=== PATIENT | female | born 1930 | race Two or more races ===

== ENCOUNTER → 2017-02-22 | Outpatient (CLI) | END | disposition home or self-care (01) | DX: M25.551 Pain in right hip (principal); M79.661 Pain in right lower leg; M54.5 Low back pain; M54.10 Radiculopathy, site unspecified; Z96.653 Presence of artificial knee joint, bilateral; I10 Essential (primary) hypertension; R10.30 Lower abdominal pain, unspecified; E53.8 Deficiency of other specified B group vitamins; R20.0 Anesthesia of skin | CPT/HCPCS: 73502; G0463 ==

== ENCOUNTER 2017-04-28 05:09 | Observation (INO) | payer MEDICARE, OTHER ==
[~2017-04-28] VITALS: Ht 154.9 cm; Wt 78.0 kg
[2017-04-28] VITALS (16 sets, daily range): BP systolic 132–170; BP diastolic 57–82; PULSE 80–96; RESP 18–37; TEMP 98.1; Ht 154.9 cm; Wt 78.0 kg
[2017-04-28] MEDS ORDERED: HYDROmorphONE 1 MG/ML SYG IV STA (05:38)
[2017-04-28] MEDS ORDERED: ONDANSETRON 4 MG INJ IV STA (05:38)
--- NOTE | 2017-04-28 06:19 | RADRPT ---
PROCEDURE: XR Hip. CLINICAL INDICATION: Trauma TECHNIQUE: Single AP portable views of the right hip COMPARISON: 02/22/2017 FINDINGS: There has been interval right total hip arthroplasty with displacement of the femoral prosthesis sup eriorly. No fracture or osseous lesion is identified. IMPRESSION: Dislocated right hip prosthesis. Physician Phyllis Date Time Electronically viewed and signed by Satya Calixto Physician on 04/28/2017 06:18 CS/
[2017-04-28] MEDS ORDERED: KETAMINE 500 MG INJ IV ONE (06:30)
[2017-04-28] MEDS ORDERED: PROPOFOL 200 MG INJ IV ONE (06:30)
--- NOTE | 2017-04-28 06:33 | ERD ---
ER Documentation Chief Complaint Date/Time DATE: 04/28/17 TIME: 06:29 Chief Complaint RT HIP REPLACEMENT 04/11;WHILE IN [facility],KNEE GAVE OUT AND PT FELL. HPI Patient is a 86-year-old female who presents with sudden onset, constant, moderate pain to the right hip after a mechanical fall. The patient is in a rehabilitation center 2 weeks after a right hip replacement and was walking to the bathroom early this morning with assistance. She turned away from the sink and felt her right hip give out. Staff were able to lower her to the ground and there is no head or other trauma. The patient complains of inability to walk and pain to the right hip and right knee. She denies vertigo, lightheadedness, loss of balance.The patient reports that she had a unremarkable preoperative workup 2 weeks ago. Her surgery was performed at [facility].Patient reports that she had her stitches removed yesterday. ROS All systems reviewed and are negative except as per history of present illness. Medications Home Meds Reported Medications Atorvastatin* (Atorvastatin*) 80 Mg Tablet, 80 MG PO QHS, #30 TAB 04/28/17 Aspirin* (Aspirin* Chew) 81 Mg Tab.chew, 324 MG PO DAILY, TAB.CHEW 04/28/17 Oxycodone Hcl* (IR) (Oxycodone Hcl*) 5 Mg Capsule, 5 MG PO Q3 Y for PAIN, CAP 04/28/17 Acetaminophen* (Acetaminophen*) 650 Mg Tablet, 650 MG PO Q4 Y for PAIN AND OR ELEVATED TEMP, #30 TAB 04/28/17 Docusate Sodium* (Colace*) 100 Mg Capsule, 100 MG PO BID, #60 CAP 04/28/17 Calcium Carbonate* (Caltrate-600*) 600 MG Calcium Tab, 600 MG PO BID, TAB (1500 mg Calcium Carbonate) 04/28/17 Mineral Oil* (Fleet* Mineral Oil Enema) 133 Ml Oil, 133 ML MD DAILY Y for CONSTIPATION, ENEMA 04/28/17 Bisacodyl* (Dulcolax*) 5 Mg Tablet.dr, 10 MG MD DAILY Y for CONSTIPATION, TAB 04/28/17 Zolpidem Tartrate* (Ambien*) 5 Mg Tablet, 5 MG PO QHS Y for INSOMNIA, #30 TAB 04/28/17 Diphenhydramine Hcl* (Benadryl*) 25 Mg Cap, 25 MG PO Q4 Y for ITCHING, CAP 04/28/17 Magnesium Hydroxide* (Milk Of Magnesia*) 400 Mg/5 Ml Oral.susp, 30 ML PO DAILY Y for CONSTIPATION, ML 04/28/17 Sotalol Hcl* (Sotalol Hcl*) 80 Mg Tablet, 80 MG PO BID, TAB HOLD IF SBP<110 04/28/17 Ibandronate Sodium* (Boniva*) 150 Mg Tablet, 150 MG PO Q28D, TAB 04/28/17 Esomeprazole Mag Trihydrate (Nexium) 40 Mg Capsule.dr, 40 MG PO AC BREAKFAST, # 30 CAP 04/28/17 Cyclosporine (RESTASIS) 1 Each Droperette, 1 DROP BOTH EYES Q12, #1 BOX 04/28/17 Benazepril Hcl* (Benazepril Hcl*) 40 Mg Tablet, 40 MG PO DAILY, #30 TAB 04/28/17 Discontinued Reported Medications Adhesive Tape (ADHESIVE TAPE) 1 Each Tape 04/28/17 [chlorohexadene] No Conflict Check 04/28/17 Allergies Allergies: Coded Allergies: adhesive tape (Verified Allergy, Severe, 04/28/17) chlorhexidine (Verified Allergy, Severe, 04/28/17) PMhx/Soc Past medical history: Hypertension Past surgical history: Right hip replacement, bilateral knee replacement, back surgery Social history: No current or former tobacco use, no alcohol History of Surgery: Yes (RIGHT HIP, NATHAN KNEES) Anesthesia Reaction: No Hx Neurological Disorder: No Hx Respiratory Disorders: No Hx Cardiac Disorders: Yes (HTN) Hx Psychiatric Problems: No Hx Miscellaneous Medical Probl: No Hx Alcohol Use: No Hx Substance Use: No Hx Tobacco Use: No Smoking Status: Never smoker FmHx Family History: No coronary disease, No diabetes Physical Exam Vitals Vital Signs Date Time Temp Pulse Resp B/P Pulse Ox O2 Delivery O2 Flow Rate FiO2 04/28/17 12:30 76 24 166/73 100 Nasal Cannula 04/28/17 09:00 67 17 160/77 100 Room Air 04/28/17 08:42 76 24 169/80 100 Room Air 04/28/17 08:21 100 6.0 04/28/17 06:30 98.1 76 20 161/69 98 Room Air 04/28/17 05:29 98.3 80 22 166/77 98 04/28/17 05:21 98.3 81 22 166/77 98 Physical Exam Const: Alert, no acute distress Head: Atraumatic Eyes: Normal Conjunctiva, No pallor, no icterus ENT: Normal External Ears, Nose and Mouth.Mucous membranes moist Neck: Full range of motion..~ No meningismus. Resp: Clear to auscultation bilaterally, No wheezes, no rales Cardio: Regular rate and rhythm, no murmurs Abd: Soft, non tender, non distended. Normal bowel sounds Skin: No petechiae or rashes Back: No midline or flank tenderness Ext: No cyanosis, or edema, Slight shortening of right leg, 2+ DP pulse, 2 second cap refill, mild tenderness without deformity of the right knee. Right lateral thigh incision for hip surgery clean dry and intact. Neur: Awake and alert, Cranial nerves II through XII intact bilaterally, strength and sensation full in 4 extremities. Psych: Normal Mood and Affect Result Diagram: 04/28/17 1250 Results 24 hrs Laboratory Tests Test 04/28/17 12:50 White Blood Count 7.110^3/ul Red Blood Count 3.5910^6/ul Hemoglobin 10.7g/dl Hematocrit 32.2% Mean Corpuscular Volume 89.7fl Mean Corpuscular Hemoglobin 29.8pg Mean Corpuscular Hemoglobin Concent 33.2g/dl Red Cell Distribution Width 14.8% Platelet Count 16652^3/UL Mean Platelet Volume 9.7fl Neutrophils % 71.9% Lymphocytes % 18.6% Monocytes % 6.2% Eosinophils % 2.4% Basophils % 0.6% Nucleated Red Blood Cells % 0.0/100WBC Neutrophils # 5.110^3/ul Lymphocytes # 1.310^3/ul Monocytes # 0.410^3/ul Eosinophils # 0.210^3/ul Basophils # 0.010^3/ul Nucleated Red Blood Cells # 0.010^3/ul Current Medications Medications (Trade) Dose Ordered Sig/Mellisa Route PRN Reason Start Time Stop Time Status Last Admin Dose Admin Hydromorphone HCl (Dilaudid) 1 mg ONCE STAT IV 04/28/17 05:38 04/28/17 05:39 DC 04/28/17 05:49 Ondansetron HCl (Zofran Inj) 4 mg ONCE STAT IV 04/28/17 05:38 04/28/17 05:39 DC 04/28/17 05:49 Propofol (Diprivan) 200 mg ONCE ONCE IV 04/28/17 06:30 04/28/17 06:31 DC 04/28/17 07:27 Ketamine HCl (Ketalar) 50 mg ONCE ONCE IV 04/28/17 06:30 04/28/17 06:31 DC 04/28/17 07:29 Morphine Sulfate (morphine) 3 mg ONCE STAT IV 04/28/17 11:07 04/28/17 11:09 DC 04/28/17 11:45 Ondansetron HCl (Zofran Inj) 4 mg BRIDGE ORDER PRN IV NAUSEA AND/OR VOMITING 04/28/17 12:00 04/29/17 11:59 Acetaminophen (Tylenol Tab) 650 mg ER BRIDGE PRN PO MILD PAIN/FEVER 04/28/17 12:00 04/29/17 11:59 Procedures/MDM Procedural Sedation: Pre-assessment performed. See preceding complete history and physical for details. Time out performed. See sedation documentation for details. Risk, benefits and alternatives were discussed with the patient. Medication(s): Ketamine 50 mg, propofol 50 mg Complications: No hypoxic or apneic events Recovered without incident. A minimum of 16 minutes of face to face time was performed including preparation, sedation and recovery time. Procedure: Dislocation reduction. Once patient was adequately sedated, traction was placed on left hip with the knee in flexion and with the pelvis stabilized against the bed. A clunk was felt, following which the hip was more easily ranged and rotated. A post procedure x-ray showed persistent superior dislocation of prosthetic hip. Procedural Sedation: Pre-assessment performed. See preceding complete history and physical for details. Time out performed. See sedation documentation for details. Risk, benefits and alternatives were discussed with the patient. Medication(s): Ketamine 25 mg, propofol 40 mg Complications: No hypoxic or apneic events Recovered without incident. Procedure: Dislocation reduction. Once patient was adequately sedated, traction was placed on left hip with the knee in flexion with the pelvis stabilized against the bed. Multiple attempts were performed with adjustments to degree of flexion and rotation of the hip, but were not successful in reducing the dislocation. MDM: Patient is a 86-year-old female 2 weeks status post right hip hemiarthroplasty who presents with dislocation of prosthetic hip. She was neurovascularly intact on arrival. 2 attempts were made at hip reduction with conscious sedation. I was unable to adequately reduce the dislocation. I suspect that there may be some postsurgical muscle shortening complicating the procedure. Neurovascular exam was intact following both attempts. I discussed the case with Dr. Gallegos, orthopedic surgeon on-call, and he recommended admission for reduction in the OR. I also discussed the case with the patient's orthopedic surgeon, Dr. Bell, and he requested admission to [facility] rather than transfer. There was no fall or signs of other injury. Departure Diagnosis: Primary Impression: Hip dislocation, right Encounter type: initial encounter Qualified Code: S73.004A - Dislocation of right hip, initial encounter Condition: Stable MAYUR MURGUIA MD Apr 28, 2017 06:33
[2017-04-28] MEDS ORDERED: PROPOFOL 200 MG INJ ONE (07:00)
[2017-04-28] MEDS ORDERED: SUCCINYLCHOLINE CHLORIDE 100 MG/5 ML SYG IV ONE (07:00)
[2017-04-28] MEDS ORDERED: LIDOCAINE 2% (SDV) 5 ML INJ ONE (07:00)
--- NOTE | 2017-04-28 07:39 | RADRPT ---
PROCEDURE: Right knee x-ray CLINICAL INDICATION: Fall, pain TECHNIQUE: Portable AP, oblique and cross-table lateral views of the knee were obtained. COMPARISON: None FINDINGS: There is normal mineralization and alignment. Left total knee arthroplasty components are intact. No acute fracture or dislocation is seen. No joint effusion is visualized. The soft tissues are unr emarkable. IMPRESSION: Right total knee arthroplasty. No evidence of fracture or dislocation. Physician Phyllis Date Time Electronically viewed and signed by Physician Phyllis on 04/28/2017 07:38 CS/
[2017-04-28] MEDS ORDERED: [UNRECOGNIZED DRUG - CODE] (08:16)
[2017-04-28] MEDS ORDERED: [UNRECOGNIZED DRUG - OTHER] (08:16)
[2017-04-28] MEDS ORDERED: BENA40TA41 PO (09:08)
[2017-04-28] MEDS ORDERED: CYCL1DRO BOTH EYES (09:08)
[2017-04-28] MEDS ORDERED: IBAN150T7 PO (09:09)
[2017-04-28] MEDS ORDERED: ESOM40CA PO (09:09)
[2017-04-28] MEDS ORDERED: SOTA80TA PO (09:10)
[2017-04-28] MEDS ORDERED: BEN25 PO (09:11)
[2017-04-28] MEDS ORDERED: MAGN400O4 PO (09:11)
[2017-04-28] MEDS ORDERED: ZOLP5TAB PO (09:11)
[2017-04-28] MEDS ORDERED: BISA-57 PR (09:12)
[2017-04-28] MEDS ORDERED: MINE133E23 PR (09:15)
[2017-04-28] MEDS ORDERED: CLC1500T PO (09:17)
[2017-04-28] MEDS ORDERED: DOCU-144 PO (09:18)
[2017-04-28] MEDS ORDERED: ACET-2047 PO (09:20)
[2017-04-28] MEDS ORDERED: OXYC5CAP17 PO (09:21)
[2017-04-28] MEDS ORDERED: ASPI81TA3 PO (09:21)
[2017-04-28] MEDS ORDERED: ATOR80TA75 PO (09:22)
--- NOTE | 2017-04-28 09:46 | RADRPT ---
PROCEDURE: XR Right Hip. CLINICAL INDICATION: Right hip dislocation. Post reduction. TECHNIQUE: Two views. Frontal and lateral. COMPARISON: Prior study done earlier the same day. FINDINGS: As seen previously, there is a superiorly dislocated right hip prosthesis. There is a total right hi p arthroplasty. There is no fracture. The soft tissues are normal. There is no lytic or blastic lesion. There has been prior lower lumbar spine surgery with hardware n oted. IMPRESSION: 1. Persistent superior dislocation of right arthroplasty. RPTAT: QQ .Viktor Dunn MD, MD Date Time Electronically viewed and signed by .Viktor Dunn MD, MD on 04/28/2017 09:45 .R/
[2017-04-28] MEDS ORDERED: morphine 4 MG/ML VIAL IV STA (11:07)
[2017-04-28] MEDS ORDERED: ONDANSETRON 4 MG INJ IV PRN ×3 (12:00→18:00)
[2017-04-28] MEDS ORDERED: ACETAMINOPHEN 325 MG TAB PO PRN ×2 (12:00→15:00)
[2017-04-28 13:22] LABS: BASOPHILS % 0.6 % (0.0-2.0); EOSINOPHILS # 0.2 10^3/ul (0.0-0.5); EOSINOPHILS % 2.4 % (0.0-7.0); HEMATOCRIT 32.2 % (37.0-47.0); HEMOGLOBIN 10.7 g/dl (12.0-16.0); LYMPHOCYTES # 1.3 10^3/ul (0.8-2.9); LYMPHOCYTES % 18.6 % (15.0-51.0); MEAN CORPUSCULAR HEMOGLOBIN 29.8 pg (29.0-33.0); MEAN CORPUSCULAR HGB CONC 33.2 g/dl (32.0-37.0); MEAN CORPUSCULAR VOLUME 89.7 fl (82.0-101.0); MEAN PLATELET VOLUME 9.7 fl (7.4-10.4); MONOCYTE # 0.4 10^3/ul (0.3-0.9); MONOCYTES % 6.2 % (0.0-11.0); NEUTROPHIL # 5.1 10^3/ul (1.6-7.5); NEUTROPHILS % 71.9 % (39.0-77.0); PLATELET COUNT 348 10^3/UL (140-415); RED BLOOD COUNT 3.59 10^6/ul (4.20-5.40); RED CELL DISTRIBUTION WIDTH 14.8 % (11.5-14.5); WHITE BLOOD COUNT 7.1 10^3/ul (4.8-10.8)
[2017-04-28 13:39] LABS: INR 0.91; PROTIME 12.3 Sec (12.2-14.2)
[2017-04-28 13:40] LABS: PARTIAL THROMBOPLASTIN TIME 29.7 Sec (25.0-35.0)
[2017-04-28 13:44] LABS: CALCIUM 9.2 mg/dl (8.4-10.2); CREATININE 0.7 mg/dl (0.44-1.00); POTASSIUM 3.6 mmol/L (3.5-5.1)
[2017-04-28] MEDS ORDERED: NACL 0.9% 3 ML SYG IV SCH (15:00)
[2017-04-28] MEDS ORDERED: MINERAL OIL 133 ML ENEMA PR PRN (15:00)
[2017-04-28] MEDS ORDERED: IBANDRONATE SODIUM 150 MG PO SCH (15:00)
[2017-04-28] MEDS ORDERED: ZOLPIDEM 5 MG TAB PO PRN (15:00)
[2017-04-28] MEDS ORDERED: MAGNESIUM HYDROXIDE 30ML CUP PO PRN (15:00)
[2017-04-28] MEDS ORDERED: ACETAMINOPHEN 650 MG SUPP PR PRN (15:00)
[2017-04-28] MEDS ORDERED: DIPHENHYDRAMINE 25 MG CAP PO PRN (15:00)
[2017-04-28] MEDS ORDERED: BISACODYL (EC) 5 MG TAB PO PRN (15:00)
[2017-04-28] MEDS: morphine 2 MG INJ IV PRN ×2 (15:24→20:01)
[2017-04-28] MEDS: CALCIUM CARBONATE 1.25 GM TAB PO SCH ×2 (15:30→20:56)
--- NOTE | 2017-04-28 15:37 | HP ---
Date/Time of Note Date/Time of Note DATE: 04/28/17 TIME: 15:30 Assessment/Plan VTE Prophylaxis VTE Prophylaxis Intervention: SCD's Lines/Catheters IV Catheter Type [facility]from [facility] Saline Lock Assessment/Plan Chief Complaint/Hosp Course This is a 86-year-old female with a recent history of right hip arthroplasty, who was brought from rehabilitation center secondary to mechanical fall with resultant sudden onset of right hip pain. 1. Mechanical fall with hip dislocation, right -Admit as inpatient. Patient is for closed reduction under anesthesia by orthopedic team. -Follow-up orthopedic recommendation regarding postoperative weightbearing, and anticoagulation. -Continue pain control 2. Severe osteoarthritis, status post recent total right hip arthroplasty 2 weeks ago. -We will up with orthopedic recommendation. 3. Hypertension. Now escalated secondary to pain. -And new home medications. 4. History of bilateral total knee replacement. 5. Dyslipidemia. -Resume statin Plan: We will follow-up with orthopedic recommendations regarding DVT prophylaxis. Follow-up with postoperative recommendation from orthopedics regarding weightbearing. We will also obtain a.m. labs including fasting lipid panel, A1c and TSH. Approximately 60 minutes was spent on this history and physical. Patient was seen in collaboration with Dr. Naik. Problems: HPI/ROS Admit Date/Time Admit Date/Time Apr 28, 2017 at 11:39 Hx of Present Illness This is a very pleasant 86-year-old female with a past medical history of osteoarthritis, total bilateral knee replacement, back surgeries, hypertension, who was brought to the emergency secondary to mechanical fall at a rehabilitation center with resultant sudden onset of right hip pain. Apparently , patient was in a [facility] facility for 2 weeks after she had right total hip arthroplasty secondary to osteoarthritis at [facility]. Initial x-ray revealed superior dislocation of right arthroplasty. In the emergency room, ER physician attempted manual reduction of the right hip. However, repeat x-ray was not showing satisfactory alignment and an orthopedic consultation was called. Patient was admitted for orthopedic condition for closed reduction under anesthesia in the operating room. Patient's initial labs showed hemoglobin 10.7, hematocrit 32.2 and sodium 132. Otherwise unremarkable. Patient denied chest pain, shortness of breath, palpitations, loss of consciousness, numbness, tingling, fever, chills, nausea, vomiting, or abdominal pain. There was no other fractures identified. There was no trauma to head. ROS 12 point review of system was assessed and is negative other than what is mentioned in HPI PMH/Family/Social Past Medical History See HPI Past Surgical History See HPI Social History NO History of alcohol, smoking or illicit drug use Smoking Status: Never smoker Exam/Review of Systems Vital Signs Vitals Vital Signs Date Time Temp Pulse Resp B/P Pulse Ox O2 Delivery O2 Flow Rate FiO2 04/28/17 15:08 98.1 84 20 170/82 98 04/28/17 12:30 Nasal Cannula 04/28/17 08:21 6.0 Exam Exam General: Elderly female in mild distress with right hip pain. HEENT: Normocephalic, Atraumatic, No laceration or hematoma; Eyes: PEERL, Conjunctiva clear, Anicteric sclera Neck: Supple without any lymphadenopathy, nontender, no JVD, no carotid bruits, trachea midline, no thyromegaly Cardiac: S1, S2 auscultated, regular rhythm and rate, no mumurs or gallop Pulmonary: Normal respiratory effort. Chest clear to auscultation bilaterally, no adventitious breath sounds GI: Abdomen normal to inspection. Soft, non tender, non- distended, no masses, no rebound tenderness or guarding. Bowel sounds active on all four quadrants Genitourinary: Deferred Extremities: Right hip with old surgical site intact. No cyanosis, clubbing, or edema. Pulses [2+] bilaterally. Full ROM on all four extremities. No focal weakness appreciated. Neurologic: Alert to person, place, time, and situation. Affect appropriate, intact sensation. Skin: Clean,dry, and intact. No ecchymosis, no rashes, or lesions Labs Result Diagram: 04/28/17 1250 04/28/17 1250 Medications Medications Current Medications Ondansetron HCl (Zofran Inj) 4 mg Q6H PRN IV NAUSEA AND/OR VOMITING Last administered on 04/28/17t 15:23; Admin Dose 4 MG; Start 04/28/17 at 15:00 Acetaminophen (Tylenol Tab) 650 mg Q6H PRN PO PAIN LEVEL 1-3 OR FEVER; Start at 15:00 Acetaminophen (Tylenol Supp) 650 mg Q6H PRN MS PAIN LEVEL 1-3 OR FEVER; Start 04/28/17 at 15:00 Morphine Sulfate (morphine) 2 mg Q4H PRN IV SEVERE PAIN LEVEL 7-10 Last administered on 04/28/17t 15:24; Admin Dose 2 MG; Start 04/28/17 at 15:00 Atorvastatin Calcium (Lipitor) 80 mg QHS PO ; Start 04/28/17 at 21:00 Benazepril HCl (Lotensin) 40 mg DAILY PO ; Start 04/29/17 at 09:00 Bisacodyl (Dulcolax) 10 mg DAILY PRN PO CONSTIPATION; Start 04/28/17 at 15:00 Cyclosporine (Restasis) 1 drop Q12 BOTH EYES ; Start 04/28/17 at 21:00 Diphenhydramine HCl (Benadryl) 25 mg Q4H PRN PO ITCHING; Start 04/28/17 at 15: 00 Docusate Sodium (Colace) 100 mg BID PO ; Start 04/28/17 at 21:00 Magnesium Hydroxide (Milk Of Mag) 30 ml DAILY PRN PO CONSTIPATION; Start at 15:00 Mineral Oil (Fleet Mineral Oil Enema) 133 ml DAILY PRN MS CONSTIPATION; Start 04/28/17 at 15:00 Sotalol HCl (Betapace) 80 mg BID PO ; Start 04/28/17 at 21:00 Zolpidem Tartrate (Ambien) 5 mg QHS PRN PO INSOMNIA; Start 04/28/17 at 15:00 Calcium Carbonate (Oyster Shell Calcium) 1.25 gm BID PO ; Start 04/28/17 at 15: 30 Miscellaneous Information 150 mg Q28D PO ; Start 04/28/17 at 15:00; Status PAUL SOUTH NP Apr 28, 2017 15:37
[2017-04-28] MEDS ORDERED: FENTAnyl 50 MCG/ML VIAL ONE (17:42)
[2017-04-28] MEDS ORDERED: DIPHENHYDRAMINE 50 MG INJ IV PRN (18:00)
[2017-04-28] MEDS ORDERED: MEPERIDINE 25 MG INJ IV PRN (18:00)
[2017-04-28] MEDS ORDERED: ALBUTEROL 0.083% (NEB) 2.5 MG/3 ML AMP HHN PRN (18:00)
[2017-04-28] MEDS ORDERED: FENTAnyl 50 MCG/ML VIAL IV PRN ×2 (18:00)
--- NOTE | 2017-04-28 18:08 | RADRPT ---
PROCEDURE: Intraoperative imaging of the right hip with fluoroscopy. CLINICAL INDICATION: Right hip pain. Intraoperative. TECHNIQUE: 2 images of the right hip were obtained in the operating room with an image intensifier . No radiologist was in attendance. 12 seconds of fluoroscopy time was used. COMPARISON: Right hip radiographs done earlier the same day which demonstrated a superiorly disloc ated total right hip arthroplasty. FINDINGS: Images demonstrate a superiorly dislocated right hip arthroplasty. IMPRESSION: 1. Intraoperative imaging of the right hip. RPTAT: QQ .Viktor Dunn MD, Date Time Electronically viewed and signed by .Viktor Dunn MD, MD on 04/28/2017 18:07 .R/
--- NOTE | 2017-04-28 19:35 | OPR ---
DATE OF OPERATION: 04/28/2017 SURGEON: Urban Bustamante MD REHANGER: Allie Diaz MD ANESTHESIOLOGIST: Joesph Samuel MD PREOPERATIVE DIAGNOSIS: Right total hip dislocation. POSTOPERATIVE DIAGNOSIS: Right total hip dislocation. OPERATIVE PROCEDURE: Performed closed reduction, right total hip prosthesis under anesthesia. ANESTHESIA: General. COMPLICATIONS: None. SPECIMEN: None. DISPOSITION: To PACU in stable condition. INDICATION FOR PROCEDURE: This is an 86-year-old female, who had a previous right total hip arthroplasty by Dr. Matheus hatfield, 13 days ago. She fell last night dislocating her right hip. Risks, benefits, alternatives to surgical intervention were discussed with the patient. Informed consent was obtained. The risks of surgery include, but are not limited to, wound dehiscence, fracture, continued pain, dislocation, need for revision surgery, heart attack, stroke, risks associated with anesthesia and even . OPERATIVE PROCEDURE: The patient was met in the preop proceed, the correct op site was confirmed and marked. She was then brought into the operating room. After induction of general anesthesia, she was placed in supine position on the operating table. A time-out was taken to identify the correct operative site. At this point, a closed reduction maneuver was attempted under anesthesia. The C-arm was brought in the hip was noted to be dislocated posteriorly. A second reduction maneuver was performed unsuccessfully. At this time when a decision was made to discontinue attempts at closed reduction. Due to potential fracture or wound dehiscence. Patient was awakened, taken to the postop care unit in stable condition. Postoperative care. The patient will be non-weightbearing on the right lower extremity. She will have bilateral SCDs. I discussed with the patient's daughter that the patient will need to be transferred to [facility] for further care by Dr. Hatfield. She may require open reduction versus of right total hip revision. All questions were answered to her satisfaction. Dictated By: Urban Bustamante MD /[email or web address] /Document#: [id number] MELVINA
[2017-04-28] MEDS ORDERED: ATORVASTATIN 80 MG TAB PO SCH (21:00)
[2017-04-28] MEDS ORDERED: SOTALOL 80 MG TAB PO SCH (21:00)
[2017-04-28] MEDS ORDERED: DOCUSATE SODIUM 100 MG CAP PO SCH (21:00)
[2017-04-28] MEDS ORDERED: CYCLOSPORINE 0.05% OPH DROPERETTE BOTH EYES SCH (21:00)
--- NOTE | 2017-04-28 21:35 | PDOCDIS ---
Discharge Instructions CONDITION Patient Condition: Stable HOME CARE INSTRUCTIONS: Diet Instructions: Low Fat /Cholesterol FOLLOW UP/APPOINTMENTS Follow-up Plan Transfer to [facility] under ,orthopedic surgery OTHER ORDERS: Other Orders: Immobilize Right hip No weight bearing right hip PAUL KIRK NP Apr 28, 2017 21:35
--- NOTE | 2017-04-28 21:38 | DS ---
Date/Time of Note Date/Time of Note DATE: 04/28/17 TIME: 21:29 Discharge Summary Admission/Discharge Info Admit Date/Time Apr 28, 2017 at 11:39 Discharge Date/Time Discharge Diagnosis 1. Right total hip dislocation, 2/2 Mechanical fall: s/p closed reduction, right total hip prosthesis under anesthesia, but was incomplete...need Open reduction 2. Severe osteoarthritis, status post recent right hip arthroplasty 2 weeks ago. 3. Hypertension. 4. History of bilateral total knee replacement. 5. Dyslipidemia. . Patient Condition: Stable Hx of Present Illness This is a very pleasant 86-year-old female with a past medical history of osteoarthritis, total bilateral knee replacement, back surgeries, hypertension, who was brought to the emergency secondary to mechanical fall at a rehabilitation center with resultant sudden onset of right hip pain. Apparently , patient was in a [facility] facility for 2 weeks after she had right hip replacement secondary to osteoarthritis at [facility]. Initial x-ray revealed superior dislocation of right arthroplasty. In the emergency room, ER physician attempted manual reduction of the right hip. However, repeat x-ray was not showing satisfactory alignment and an orthopedic consultation was called. Patient was admitted for orthopedic condition for reduction under anesthesia in the operating room. Patient's initial labs showed hemoglobin 10.7, hematocrit 32.2 and sodium 132. Otherwise unremarkable. Patient denied chest pain, shortness of breath, palpitations, loss of consciousness, numbness, tingling, fever, chills, nausea, vomiting, or abdominal pain. There was no other fractures identified. There was no trauma to head. . Hospital Course Patient was seen by Dr. Urban Bustamante, Orthopedic Surgeon, who performed closed reduction, right total hip prosthesis under anesthesia, but was incomplete. He also recommended that patient need to be transferred to [facility] for further care by Dr. Hatfield. She may require open reduction versus of right total hip revision. . Home Meds Reported Medications Atorvastatin* (Atorvastatin*) 80 Mg Tablet, 80 MG PO QHS, #30 TAB 04/28/17 Aspirin* (Aspirin* Chew) 81 Mg Tab.chew, 324 MG PO DAILY, TAB.CHEW 04/28/17 Oxycodone Hcl* (IR) (Oxycodone Hcl*) 5 Mg Capsule, 5 MG PO Q3 Y for PAIN, CAP 04/28/17 Acetaminophen* (Acetaminophen*) 650 Mg Tablet, 650 MG PO Q4 Y for PAIN AND OR ELEVATED TEMP, #30 TAB 04/28/17 Docusate Sodium* (Colace*) 100 Mg Capsule, 100 MG PO BID, #60 CAP 04/28/17 Calcium Carbonate* (Caltrate-600*) 600 MG Calcium Tab, 600 MG PO BID, TAB (1500 mg Calcium Carbonate) 04/28/17 Mineral Oil* (Fleet* Mineral Oil Enema) 133 Ml Oil, 133 ML TX DAILY Y for CONSTIPATION, ENEMA 04/28/17 Bisacodyl* (Dulcolax*) 5 Mg Tablet.dr, 10 MG TX DAILY Y for CONSTIPATION, TAB 04/28/17 Zolpidem Tartrate* (Ambien*) 5 Mg Tablet, 5 MG PO QHS Y for INSOMNIA, #30 TAB 04/28/17 Diphenhydramine Hcl* (Benadryl*) 25 Mg Cap, 25 MG PO Q4 Y for ITCHING, CAP 04/28/17 Magnesium Hydroxide* (Milk Of Magnesia*) 400 Mg/5 Ml Oral.susp, 30 ML PO DAILY Y for CONSTIPATION, ML 04/28/17 Sotalol Hcl* (Sotalol Hcl*) 80 Mg Tablet, 80 MG PO BID, TAB HOLD IF SBP<110 04/28/17 Ibandronate Sodium* (Boniva*) 150 Mg Tablet, 150 MG PO Q28D, TAB 04/28/17 Esomeprazole Mag Trihydrate (Nexium) 40 Mg Capsule.dr, 40 MG PO AC BREAKFAST, # 30 CAP 04/28/17 Cyclosporine (RESTASIS) 1 Each Droperette, 1 DROP BOTH EYES Q12, #1 BOX 04/28/17 Benazepril Hcl* (Benazepril Hcl*) 40 Mg Tablet, 40 MG PO DAILY, #30 TAB 04/28/17 Discontinued Reported Medications Adhesive Tape (ADHESIVE TAPE) 1 Each Tape 04/28/17 [chlorohexadene] No Conflict Check 04/28/17 Primary Care Provider Sage Molina Pending Labs Laboratory Tests Test 04/28/17 12:50 White Blood Count 7.110^3/ul (4.8-10.8) Red Blood Count 3.5910^6/ul (4.20-5.40) Hemoglobin 10.7g/dl (12.0-16.0) Hematocrit 32.2% (37.0-47.0) Mean Corpuscular Volume 89.7fl (82.0-101.0) Mean Corpuscular Hemoglobin 29.8pg (29.0-33.0) Mean Corpuscular Hemoglobin Concent 33.2g/dl (32.0-37.0) Red Cell Distribution Width 14.8% (11.5-14.5) Platelet Count 86567^3/UL (140-415) Mean Platelet Volume 9.7fl (7.4-10.4) Neutrophils % 71.9% (39.0-77.0) Lymphocytes % 18.6% (15.0-51.0) Monocytes % 6.2% (0.0-11.0) Eosinophils % 2.4% (0.0-7.0) Basophils % 0.6% (0.0-2.0) Nucleated Red Blood Cells % 0.0/100WBC (0.0-0.0) Neutrophils # 5.110^3/ul (1.6-7.5) Lymphocytes # 1.310^3/ul (0.8-2.9) Monocytes # 0.410^3/ul (0.3-0.9) Eosinophils # 0.210^3/ul (0.0-0.5) Basophils # 0.010^3/ul (0.0-0.1) Nucleated Red Blood Cells # 0.010^3/ul (0.0-0.0) Prothrombin Time 12.3Sec (12.2-14.2) Prothrombin Time Ratio 1.0 INR International Normalized Ratio 0.91 Activated Partial Thromboplast Time 29.7Sec (25.0-35.0) Sodium Level 132mmol/L (135-144) Potassium Level 3.6mmol/L (3.5-5.1) Chloride Level 97mmol/L (97-110) Carbon Dioxide Level 27mmol/L (21-31) Anion Gap 12 (8-16) Blood Urea Nitrogen 12mg/dl (7-20) Creatinine 0.70mg/dl (0.44-1.00) Glucose Level 86mg/dl (70-220) Calcium Level 9.2mg/dl (8.4-10.2) TUNDE HATHAWAY MD Apr 28, 2017 21:38 TUNDE HATHAWAY MD Apr 28, 2017 21:38
--- NOTE | 2017-04-28 21:48 | DS ---
Date/Time of Note Date/Time of Note DATE: 04/28/17 TIME: 21:39 Discharge Summary Admission/Discharge Info Admit Date/Time Apr 28, 2017 at 11:39 Discharge Date/Time Discharge Diagnosis 1. Right total hip dislocation, 2/2 Mechanical fall: s/p closed reduction, right total hip prosthesis under [id number] open reduction 2. Severe osteoarthritis, status post recent right hip arthroplasty 2 weeks ago. 3. Hypertension. 4. History of bilateral total knee replacement. 5. Dyslipidemia. . Consults ,ortho Procedures 04/28/2017. Performed closed reduction, right total hip prosthesis under anesthesia. Hx of Present Illness This is a very pleasant 86-year-old female with a past medical history of osteoarthritis, total bilateral knee replacement, back surgeries, hypertension, who was brought to the emergency secondary to mechanical fall at a rehabilitation center with resultant sudden onset of right hip pain. Apparently , patient was in a [place] [facility] facility for 2 weeks after she had right hip replacement secondary to osteoarthritis at [facility]. Initial x-ray revealed superior dislocation of right arthroplasty. In the emergency room, ER physician attempted manual reduction of the right hip. However, repeat x-ray was not showing satisfactory alignment and an orthopedic consultation was called. Patient was admitted for orthopedic condition for reduction under anesthesia in the operating room. Patient's initial labs showed hemoglobin 10.7, hematocrit 32.2 and sodium 132. Otherwise unremarkable. Patient denied chest pain, shortness of breath, palpitations, loss of consciousness, numbness, tingling, fever, chills, nausea, vomiting, or abdominal pain. There was no other fractures identified. There was no trauma to head. . Hospital Course Patient was seen by Dr. Urban Bustamante, Orthopedic Surgeon, who performed closed reduction, right total hip prosthesis under anesthesia. Post reduction, hip was noted to be dislocated posteriorly. A second attempt was unsuccessful. Due to to potential fracture or wound dehiscence, closed reduction was discontinued in the operative room. He also recommended that patient need to be transferred to [facility] for further care by Dr. Hatfield. She may require open reduction versus of right total hip revision. Patient was taken back to recovery room in stable condition. Case management was consulted and arrangement had made to transfer patient to [facility] for further care.family in agreement for transfer. Approximately 60mins was spent on coordinating discharge on this patient. patient was seen in collaboration with . . Home Meds Reported Medications Atorvastatin* (Atorvastatin*) 80 Mg Tablet, 80 MG PO QHS, #30 TAB 04/28/17 Aspirin* (Aspirin* Chew) 81 Mg Tab.chew, 324 MG PO DAILY, TAB.CHEW 04/28/17 Oxycodone Hcl* (IR) (Oxycodone Hcl*) 5 Mg Capsule, 5 MG PO Q3 Y for PAIN, CAP 04/28/17 Acetaminophen* (Acetaminophen*) 650 Mg Tablet, 650 MG PO Q4 Y for PAIN AND OR ELEVATED TEMP, #30 TAB 04/28/17 Docusate Sodium* (Colace*) 100 Mg Capsule, 100 MG PO BID, #60 CAP 04/28/17 Calcium Carbonate* (Caltrate-600*) 600 MG Calcium Tab, 600 MG PO BID, TAB (1500 mg Calcium Carbonate) 04/28/17 Mineral Oil* (Fleet* Mineral Oil Enema) 133 Ml Oil, 133 ML DE DAILY Y for CONSTIPATION, ENEMA 04/28/17 Bisacodyl* (Dulcolax*) 5 Mg Tablet.dr, 10 MG DE DAILY Y for CONSTIPATION, TAB 04/28/17 Zolpidem Tartrate* (Ambien*) 5 Mg Tablet, 5 MG PO QHS Y for INSOMNIA, #30 TAB 04/28/17 Diphenhydramine Hcl* (Benadryl*) 25 Mg Cap, 25 MG PO Q4 Y for ITCHING, CAP 04/28/17 Magnesium Hydroxide* (Milk Of Magnesia*) 400 Mg/5 Ml Oral.susp, 30 ML PO DAILY Y for CONSTIPATION, ML 04/28/17 Sotalol Hcl* (Sotalol Hcl*) 80 Mg Tablet, 80 MG PO BID, TAB HOLD IF SBP<110 04/28/17 Ibandronate Sodium* (Boniva*) 150 Mg Tablet, 150 MG PO Q28D, TAB 04/28/17 Esomeprazole Mag Trihydrate (Nexium) 40 Mg Capsule.dr, 40 MG PO AC BREAKFAST, # 30 CAP 04/28/17 Cyclosporine (RESTASIS) 1 Each Droperette, 1 DROP BOTH EYES Q12, #1 BOX 04/28/17 Benazepril Hcl* (Benazepril Hcl*) 40 Mg Tablet, 40 MG PO DAILY, #30 TAB 04/28/17 Discontinued Reported Medications Adhesive Tape (ADHESIVE TAPE) 1 Each Tape 04/28/17 [chlorohexadene] No Conflict Check 04/28/17 Follow-up Plan Transfer to [facility] under ,orthopedic surgery Primary Care Provider Sage Molina Pending Labs Laboratory Tests Test 04/28/17 12:50 White Blood Count 7.110^3/ul (4.8-10.8) Red Blood Count 3.5910^6/ul (4.20-5.40) Hemoglobin 10.7g/dl (12.0-16.0) Hematocrit 32.2% (37.0-47.0) Mean Corpuscular Volume 89.7fl (82.0-101.0) Mean Corpuscular Hemoglobin 29.8pg (29.0-33.0) Mean Corpuscular Hemoglobin Concent 33.2g/dl (32.0-37.0) Red Cell Distribution Width 14.8% (11.5-14.5) Platelet Count 80803^3/UL (140-415) Mean Platelet Volume 9.7fl (7.4-10.4) Neutrophils % 71.9% (39.0-77.0) Lymphocytes % 18.6% (15.0-51.0) Monocytes % 6.2% (0.0-11.0) Eosinophils % 2.4% (0.0-7.0) Basophils % 0.6% (0.0-2.0) Nucleated Red Blood Cells % 0.0/100WBC (0.0-0.0) Neutrophils # 5.110^3/ul (1.6-7.5) Lymphocytes # 1.310^3/ul (0.8-2.9) Monocytes # 0.410^3/ul (0.3-0.9) Eosinophils # 0.210^3/ul (0.0-0.5) Basophils # 0.010^3/ul (0.0-0.1) Nucleated Red Blood Cells # 0.010^3/ul (0.0-0.0) Prothrombin Time 12.3Sec (12.2-14.2) Prothrombin Time Ratio 1.0 INR International Normalized Ratio 0.91 Activated Partial Thromboplast Time 29.7Sec (25.0-35.0) Sodium Level 132mmol/L (135-144) Potassium Level 3.6mmol/L (3.5-5.1) Chloride Level 97mmol/L (97-110) Carbon Dioxide Level 27mmol/L (21-31) Anion Gap 12 (8-16) Blood Urea Nitrogen 12mg/dl (7-20) Creatinine 0.70mg/dl (0.44-1.00) Glucose Level 86mg/dl (70-220) Calcium Level 9.2mg/dl (8.4-10.2) PAUL KIRK NP Apr 28, 2017 21:48
--- NOTE | 2017-04-28 22:09 | CONS ---
DATE OF ADMISSION: 04/28/2017 DATE OF CONSULTATION: 04/28/2017 CHIEF COMPLAINT: Right hip pain. HISTORY OF PRESENT ILLNESS: This is an 86-year-old female complaining of right hip pain. She had a previous right total hip arthroplasty by Dr. Matheus Hatfield at [facility] 13 days ago. She fell last night. She is complaining of increasing pain over the right hip. She is brought by EMS to [facility] Emergency Department. She denies any loss of consciousness. PAST MEDICAL HISTORY: Hypertension, obesity. MEDICATION: Please see chart. PAST SURGICAL HISTORY: 1. Right total hip arthroplasty by Dr. Hatfield. 2. Bilateral total knee arthroplasties. 3. Back surgery. SOCIAL HISTORY: Denies any tobacco, alcohol, or drug use. FAMILY HISTORY: None. ALLERGIES: NO KNOWN DRUG ALLERGIES. REVIEW OF SYSTEMS: Negative. PHYSICAL EXAMINATION: VITAL SIGNS: 98.1, 166/73, 76 pulse, respiratory rate 24. GENERAL: No acute distress. Alert and oriented x3. EXTREMITIES: Right lower extremity: The right leg is shortened, externally rotated. There is a posterolateral incision that is healing. There is no drainage. There is no open wound. Steri- Strips are intact. Neurovascularly intact throughout the right lower extremity, with palpable pulses. LABORATORY: Right hip x-ray: There is a posterior dislocation of right total hip prosthesis. There are no fractures. No other abnormalities are seen. IMPRESSION: An 86-year-old female with a right total hip dislocation. PLAN: She will be n.p.o. I discussed the risks associated with surgery with the patient. We will proceed with a right total hip closed reduction under anesthesia. All questions were answered to her satisfaction. Dictated By: Urban Bustamante MD /[email or web address]/[email or web address] /Document#: [id number]
[2017-04-29] MEDS: morphine 2 MG INJ IV PRN (00:05)
[2017-04-29] MEDS ORDERED: PANTOPRAZOLE (EC) 40 MG TAB PO SCH (07:00)
[2017-04-29] MEDS ORDERED: BENAZEPRIL 40 MG TAB PO SCH (09:00)
== END 2017-04-29 00:25 | disposition other institution (70) ==
LOC: E/R 05:09 → MS1 11:39
PROVIDERS: ADMIT Hospitalist; ATTEND Hospitalist
DX: T84.020A Dislocation of internal right hip prosthesis, initial encounter (principal); I10 Essential (primary) hypertension; E78.5 Hyperlipidemia, unspecified; M16.11 Unilateral primary osteoarthritis, right hip; Z68.32 Body mass index [BMI] 32.0-32.9, adult; E66.9 Obesity, unspecified; Z79.82 Long term (current) use of aspirin; Z96.653 Presence of artificial knee joint, bilateral; Z88.8 Allergy status to other drugs, medicaments and biological substances; Z91.048 Other nonmedicinal substance allergy status; W19.XXXA Unspecified fall, initial encounter; Y93.01 Activity, walking, marching and hiking; Y99.9 Unspecified external cause status; Y92.002 Bathroom of unspecified non-institutional (private) residence as the place of occurrence of the external cause
CPT/HCPCS: 27252; 73510; 73562; 80048; 85025; 85610; 85730; 94770; 96374; 96375; 96376; 99285; G0378; J1170; J2175; J2270; J2405; J3010; J7999